=== PATIENT | female | born 1965 | race Caucasian/White ===

== ENCOUNTER → 2016-08-23 | Outpatient (REF) | payer OTHER ==
[~2016-08-23] MED LIST: ALER25CA PO; ASPI81TA85 PO; FERR325T3 PO; HYDR12.55 PO; IBUP600T26 PO; LEVO100T5 PO; MEGE40TA PO; METF500T PO; OMEP40CA2 PO; PREZ1TAB PO; SUMA50TA2 PO; THERTAB56 PO; TRUVTAB3 PO; [UNRECOGNIZED DRUG - CODE] PO
[2016-08-23 13:02] LABS: ALBUMIN 3.7 GM/DL (3.2-5.2); ALBUMIN/GLOBULIN RATIO 1.12 (1.00-1.93); ALKALINE PHOSPHATASE 78 U/L (45-117); ALT/SGPT 24 U/L (12-78); ANION GAP 11 MEQ/L (8-16); AST/SGOT 14 U/L (15-37); BILIRUBIN,TOTAL 0.3 MG/DL (0.2-1.0); BLOOD UREA NITROGEN 14 MG/DL (7-18); CALCIUM LEVEL 9.2 MG/DL (8.5-10.1); CARBON DIOXIDE LEVEL 27 MEQ/L (21-32); CHLORIDE LEVEL 102 MEQ/L (98-107); CHOLESTEROL LEVEL 154 MG/DL (<200); GLOMERULAR FILTRATION RATE > 60.0 (>51); GLUCOSE, FASTING 229 MG/DL (70-105); POTASSIUM SERUM 3.7 MEQ/L (3.5-5.1); SODIUM LEVEL 140 MEQ/L (136-145); TRIGLYCERIDES LEVEL 195 MG/DL (<150)
== END ==
LOC: M SFHCPLAZ 08:50
PROVIDERS: ATTEND Internal Medicine Infectious Disease
DX: B20 Human immunodeficiency virus [HIV] disease (principal); E11.39 Type 2 diabetes mellitus with other diabetic ophthalmic complication; E03.9 Hypothyroidism, unspecified

== ENCOUNTER → 2016-10-25 | Outpatient (REF) | payer OTHER ==
[~2016-10-25] MED LIST changes: -MEGE40TA PO; +MEGE40TA18 PO
== END ==
LOC: M SFHCPLAZ 13:13
PROVIDERS: ATTEND Internal Medicine Infectious Disease
DX: J40 Bronchitis, not specified as acute or chronic (principal)

== ENCOUNTER → 2017-03-14 | Outpatient (REF) | payer OTHER ==
[~2017-03-14] MED LIST changes: +IBUP-1022 PO; -IBUP600T26 PO; -METF500T PO; +METF500T13 PO; +TRUVTAB PO; -TRUVTAB3 PO; +[UNRECOGNIZED DRUG - CODE] PO; -[UNRECOGNIZED DRUG - CODE] PO
[2017-03-14 19:13] LABS: ALBUMIN 3.2 GM/DL (3.2-5.2); ALBUMIN/GLOBULIN RATIO 0.82 (1.00-1.93); BILIRUBIN,TOTAL 0.2 MG/DL (0.2-1.0); CALCIUM LEVEL 9.3 MG/DL (8.5-10.1); CREATININE FOR GFR 1.06 MG/DL (0.55-1.02); FREE T4 1.23 NG/DL (0.76-1.46); GLOMERULAR FILTRATION RATE 57.7 (>51); PERCENT SATURATION 14.4 % (13.2-45.0); POTASSIUM SERUM 4.1 MEQ/L (3.5-5.1); TOTAL PROTEIN 7.1 GM/DL (6.4-8.2)
[2017-03-20 00:06] LABS: Eosinophils 1 % (Not Estab.); HGB 12.6 g/dL (11.1-15.9); Monocytes 6 % (Not Estab.); Neutrophils 58 % (Not Estab.); WBC 9.1 x10E3/uL (3.4-10.8)
== END ==
LOC: M SFHCPLAZ 14:20
PROVIDERS: ATTEND Internal Medicine Infectious Disease
DX: B20 Human immunodeficiency virus [HIV] disease (principal); E03.9 Hypothyroidism, unspecified; E11.39 Type 2 diabetes mellitus with other diabetic ophthalmic complication; D50.8 Other iron deficiency anemias

== ENCOUNTER → 2017-07-02 | Outpatient (REF) | payer OTHER ==
[2017-07-02 16:25] LABS: ESTIMATED AVERAGE GLUCOSE 275 MG/DL (60-110); HEMOGLOBIN A1c 11.2 %
[2017-07-02 16:42] LABS: ANION GAP 9 MEQ/L (8-16); BLOOD UREA NITROGEN 14 MG/DL (7-18); CALCIUM LEVEL 9.2 MG/DL (8.5-10.1); CARBON DIOXIDE LEVEL 30 MEQ/L (21-32); CHLORIDE LEVEL 99 MEQ/L (98-107); CREATININE FOR GFR 1.12 MG/DL (0.55-1.30); FREE T4 1.02 NG/DL (0.76-1.46); GLOMERULAR FILTRATION RATE 54.2 (>51); GLUCOSE, FASTING 272 MG/DL (70-100); POTASSIUM SERUM 3.6 MEQ/L (3.5-5.1); SODIUM LEVEL 138 MEQ/L (136-145)
[2017-07-03 11:05] LABS: HEPATITIS B SURFACE ANTIBODY NEGATIVE (POSITIVE)
[2017-07-03 11:11] LABS: HEPATITIS B SURFACE ANTIGEN NEGATIVE (NEGATIVE)
[2017-07-04 08:06] LABS: HEPATITIS A IgG TOTAL Positive (Negative)
== END ==
LOC: M LABDRAW1 13:56
DX: E03.9 Hypothyroidism, unspecified (principal); E11.39 Type 2 diabetes mellitus with other diabetic ophthalmic complication

== ENCOUNTER → 2017-09-17 | Outpatient (REF) | payer OTHER ==
[2017-09-17 12:28] LABS: ALBUMIN 3.5 GM/DL (3.2-5.2); ALKALINE PHOSPHATASE 62 U/L (45-117); ALT/SGPT 24 U/L (12-78); AST/SGOT 13 U/L (7-37); BILIRUBIN,TOTAL 0.2 MG/DL (0.2-1.0); BLOOD UREA NITROGEN 13 MG/DL (7-18); CARBON DIOXIDE LEVEL 26 MEQ/L (21-32); CHLORIDE LEVEL 105 MEQ/L (98-107); GLUCOSE, FASTING 298 MG/DL (70-100); HDL CHOLESTEROL 34 MG/DL (>40); POTASSIUM SERUM 3.6 MEQ/L (3.5-5.1); TRIGLYCERIDES LEVEL 232 MG/DL (<150)
[2017-09-17 12:55] LABS: APPEARANCE, URINE CLEAR (CLEAR); BACTERIA, URINE AUTO NEGATIVE (NEGATIVE); BILIRUBIN, URINE AUTO NEGATIVE (NEGATIVE); BLOOD, URINE BLOOD NEGATIVE (NEGATIVE); COLOR, URINE YELLOW (YELLOW); GLUCOSE, URINE (UA) AUTO 3+ mg/dL (NEGATIVE); KETONE, URINE AUTO NEGATIVE (NEGATIVE); LEUKOCYTE ESTERASE, URINE AUTO NEGATIVE (NEGATIVE); NITRITE, URINE AUTO NEGATIVE (NEGATIVE); PROTEIN, URINE AUTO NEGATIVE (NEGATIVE); RBC, URINE AUTO 1 /HPF (0-3); SPECIFIC GRAVITY URINE AUTO 1.023 (1.002-1.035); SQUAMOUS EPITHELIAL CELL UR AU 1 /HPF (0-6); UROBILINOGEN, URINE AUTO 0.2 mg/dL (0.0-2.0); WBC, URINE AUTO 0 /HPF (0-3)
[2017-09-17 13:15] LABS: CREATININE, URINE 84.8 MG/DL; MALB URINE SIEMENS 49.1 MG/L; MAU/CREAT RATIO 57.9 MCG/MG (0.0-30.0)
[2017-09-17 13:17] LABS: CALCIUM LEVEL 9.5 MG/DL (8.5-10.1); ESTIMATED AVERAGE GLUCOSE 229 MG/DL (60-110); HEMOGLOBIN A1c 9.6 %
[2017-09-17 14:02] LABS: ANION GAP 10 MEQ/L (8-16); CHOLESTEROL LEVEL 172 MG/DL (<200); CHOLESTEROL RISK RATIO 5.058 (<5); LDL CHOLESTEROL 91.6 MG/DL (<100); NON-HDL-C 138 MG/DL; SODIUM LEVEL 141 MEQ/L (136-145)
[2017-09-20 00:06] LABS: % CD8 Pos Lymph 46.6 % (12.0-35.5); %CD4 Pos Lymphs 36.3 % (30.8-58.5); ABS Basophils 0.1 x10E3/uL (0.0-0.2); ABS Eosinophils 0.2 x10E3/uL (0.0-0.4); ABS Lymphs 3.3 x10E3/uL (0.7-3.1); ABS Monocytes 0.5 x10E3/uL (0.1-0.9); ABS Neutophils 7.5 x10E3/uL (1.4-7.0); Abs CD4 Helper 1198 /uL (359-1519); Abs CD8 Suppres 1538 /uL (109-897); CD4/CD8 Ratio 0.78 (0.92-3.72); Eosinophils 2 % (Not Estab.); HCT 37.5 % (34.0-46.6); HGB 12.4 g/dL (11.1-15.9); HIV-1 RNA PCR QUANT 2 LC550285 40 copies/mL (.); HIV-1 RNA PCR QUANT 3 LC550285 1.602 (.); Immature Grans 0 % (Not Estab.); Lymphocytes 29 % (Not Estab.); MCH 30.1 pg (26.6-33.0); MCHC 33.1 g/dL (31.5-35.7); MCV 91 fL (79-97); Monocytes 5 % (Not Estab.); Neutrophils 63 % (Not Estab.); Platelets 370 x10E3/uL (150-379); QUANTIFERON GOLD TB Negative (Negative); RBC 4.12 x10E6/uL (3.77-5.28); TB Test (QFT) Antigen 0.03 IU/mL (.); TB Test (QFT) Antigen Minus Ni 0.01 IU/mL (.); TB Test (QFT) Mitogen >10.00 IU/mL (.); TB Test (QFT) Nil 0.02 IU/mL (.); WBC 11.7 x10E3/uL (3.4-10.8)
== END ==
LOC: M SFHCPLAZ 08:35
DX: B20 Human immunodeficiency virus [HIV] disease (principal); E11.39 Type 2 diabetes mellitus with other diabetic ophthalmic complication; E03.9 Hypothyroidism, unspecified

== ENCOUNTER → 2017-12-27 | Outpatient (REF) | payer OTHER ==
[2017-12-27 12:46] LABS: ALBUMIN 3.7 GM/DL (3.2-5.2); ALBUMIN/GLOBULIN RATIO 1.03 (1.00-1.93); ALKALINE PHOSPHATASE 64 U/L (45-117); ALT/SGPT 26 U/L (12-78); ANION GAP 10 MEQ/L (8-16); AST/SGOT 12 U/L (7-37); BILIRUBIN,TOTAL 0.4 MG/DL (0.2-1.0); BLOOD UREA NITROGEN 12 MG/DL (7-18); CALCIUM LEVEL 9.4 MG/DL (8.5-10.1); CARBON DIOXIDE LEVEL 28 MEQ/L (21-32); CHLORIDE LEVEL 105 MEQ/L (98-107); CHOLESTEROL LEVEL 166 MG/DL (<200); CHOLESTEROL RISK RATIO 4.611 (<5); CREATININE FOR GFR 1.04 MG/DL (0.55-1.30); FREE T4 1.12 NG/DL (0.76-1.46); GLOMERULAR FILTRATION RATE 58.8 (>51); GLUCOSE, FASTING 179 MG/DL (70-100); HDL CHOLESTEROL 36 MG/DL (>40); LDL CHOLESTEROL 83.8 MG/DL (<100); NON-HDL-C 130 MG/DL; POTASSIUM SERUM 3.8 MEQ/L (3.5-5.1); SODIUM LEVEL 143 MEQ/L (136-145); TOTAL PROTEIN 7.3 GM/DL (6.4-8.2); TRIGLYCERIDES LEVEL 231 MG/DL (<150)
[2017-12-27 13:17] LABS: ESTIMATED AVERAGE GLUCOSE 249 MG/DL (60-110); HEMOGLOBIN A1c 10.3 %
[2017-12-31 15:32] LABS: % CD8 Pos Lymph 43.6 % (12.0-35.5); %CD4 Pos Lymphs 34.3 % (30.8-58.5); ABS Eosinophils 0.2 x10E3/uL (0.0-0.4); ABS Lymphs 2.7 x10E3/uL (0.7-3.1); ABS Monocytes 0.8 x10E3/uL (0.1-0.9); ABS Neutophils 8.1 x10E3/uL (1.4-7.0); Abs CD4 Helper 926 /uL (359-1519); Abs CD8 Suppres 1177 /uL (109-897); CD4/CD8 Ratio 0.79 (0.92-3.72); Eosinophils 1 % (Not Estab.); HCT 37.3 % (34.0-46.6); HIV-1 RNA PCR QUANT 2 LC550285 <20 copies/mL (.); Immature Grans 0 % (Not Estab.); Lymphocytes 23 % (Not Estab.); MCH 28.2 pg (26.6-33.0); MCHC 32.2 g/dL (31.5-35.7); MCV 88 fL (79-97); Monocytes 7 % (Not Estab.); Neutrophils 69 % (Not Estab.); Platelets 437 x10E3/uL (150-379); RBC 4.25 x10E6/uL (3.77-5.28); RDW 15.7 % (12.3-15.4); WBC 11.8 x10E3/uL (3.4-10.8)
== END ==
LOC: M LABDRAW1 08:58
DX: B20 Human immunodeficiency virus [HIV] disease (principal); E03.9 Hypothyroidism, unspecified; E11.39 Type 2 diabetes mellitus with other diabetic ophthalmic complication

== ENCOUNTER → 2018-06-30 | Outpatient (REF) | payer OTHER ==
[2018-06-30 14:04] LABS: ALBUMIN 3.7 GM/DL (3.2-5.2); ALT/SGPT 30 U/L (12-78); BILIRUBIN,TOTAL 0.3 MG/DL (0.2-1.0); BLOOD UREA NITROGEN 11 MG/DL (7-18); CARBON DIOXIDE LEVEL 26 MEQ/L (21-32); CHLORIDE LEVEL 102 MEQ/L (98-107); CHOLESTEROL LEVEL 179 MG/DL (<200); CHOLESTEROL RISK RATIO 5.114 (<5); FREE T4 1.09 NG/DL (0.76-1.46); GLOMERULAR FILTRATION RATE > 60.0 (>51); GLUCOSE, FASTING 215 MG/DL (70-100); HDL CHOLESTEROL 35 MG/DL (>40); LDL CHOLESTEROL 88 MG/DL (<100); NON-HDL-C 144 MG/DL; POTASSIUM SERUM 3.6 MEQ/L (3.5-5.1); SODIUM LEVEL 139 MEQ/L (136-145); TOTAL PROTEIN 7.3 GM/DL (6.4-8.2); TRIGLYCERIDES LEVEL 280 MG/DL (<150)
[2018-06-30 14:18] LABS: HEMOGLOBIN A1c 10.8 %
[2018-07-02 00:11] LABS: % CD8 Pos Lymph 42.2 % (12.0-35.5); %CD4 Pos Lymphs 37.7 % (30.8-58.5); ABS Basophils 0.1 x10E3/uL (0.0-0.2); ABS Eosinophils 0.2 x10E3/uL (0.0-0.4); ABS Lymphs 3.4 x10E3/uL (0.7-3.1); ABS Monocytes 0.7 x10E3/uL (0.1-0.9); Abs CD4 Helper 1282 /uL (359-1519); Abs CD8 Suppres 1435 /uL (109-897); CD4/CD8 Ratio 0.89 (0.92-3.72); Eosinophils 1 % (Not Estab.); HCT 40.4 % (34.0-46.6); HGB 13.2 g/dL (11.1-15.9); Imm ABS Grans 0.1 x10E3/uL (0.0-0.1); Immature Grans 1 % (Not Estab.); Lymphocytes 28 % (Not Estab.); MCH 29.4 pg (26.6-33.0); MCHC 32.7 g/dL (31.5-35.7); MCV 90 fL (79-97); Monocytes 5 % (Not Estab.); Neutrophils 65 % (Not Estab.); Platelets 420 x10E3/uL (150-379); RBC 4.49 x10E6/uL (3.77-5.28); RDW 15.1 % (12.3-15.4); WBC 12.4 x10E3/uL (3.4-10.8)
[2018-07-03 00:09] LABS: HIV-1 RNA PCR QUANT 2 LC550285 <20 copies/mL (.)
== END ==
LOC: M SFHCPLAZ 10:50
PROVIDERS: ATTEND Internal Medicine Infectious Disease
DX: B20 Human immunodeficiency virus [HIV] disease (principal); E11.39 Type 2 diabetes mellitus with other diabetic ophthalmic complication; E03.9 Hypothyroidism, unspecified

== ENCOUNTER → 2018-10-02 | Outpatient (REF) | payer OTHER ==
[2018-10-02 14:05] LABS: ALBUMIN 3.4 GM/DL (3.2-5.2); BILIRUBIN,TOTAL 0.3 MG/DL (0.2-1.0); CALCIUM LEVEL 9.2 MG/DL (8.5-10.1); CHOLESTEROL RISK RATIO 6.6 (<5); CREATININE FOR GFR 1.11 MG/DL (0.55-1.30); FREE T4 1.21 NG/DL (0.76-1.46); GLOMERULAR FILTRATION RATE 54.3 (>51); POTASSIUM SERUM 3.4 MEQ/L (3.5-5.1); THYROID STIMULATING HORMONE 2.52 uIU/ML (0.358-3.740); TOTAL PROTEIN 7.2 GM/DL (6.4-8.2)
[2018-10-02 14:13] LABS: HEMOGLOBIN A1c 9.3 %
[2018-10-06 14:10] LABS: % CD8 Pos Lymph 44.4 % (12.0-35.5); %CD4 Pos Lymphs 36.8 % (30.8-58.5); ABS Eosinophils 0.2 x10E3/uL (0.0-0.4); ABS Lymphs 2.8 x10E3/uL (0.7-3.1); ABS Monocytes 0.5 x10E3/uL (0.1-0.9); ABS Neutophils 6.4 x10E3/uL (1.4-7.0); Abs CD4 Helper 1030 /uL (359-1519); Abs CD8 Suppres 1243 /uL (109-897); CD4/CD8 Ratio 0.83 (0.92-3.72); Eosinophils 2 % (Not Estab.); HCT 39.6 % (34.0-46.6); HGB 12.8 g/dL (11.1-15.9); HIV-1 RNA PCR QUANT 2 LC550285 <20 copies/mL (.); Immature Grans 0 % (Not Estab.); Lymphocytes 28 % (Not Estab.); MCH 29.2 pg (26.6-33.0); MCHC 32.3 g/dL (31.5-35.7); MCV 90 fL (79-97); Monocytes 5 % (Not Estab.); Neutrophils 65 % (Not Estab.); Platelets 419 x10E3/uL (150-379); RBC 4.38 x10E6/uL (3.77-5.28); WBC 9.9 x10E3/uL (3.4-10.8)
== END ==
LOC: M SFHCPLAZ 09:23
PROVIDERS: ATTEND Internal Medicine Infectious Disease
DX: B20 Human immunodeficiency virus [HIV] disease (principal); E11.39 Type 2 diabetes mellitus with other diabetic ophthalmic complication; C32.9 Malignant neoplasm of larynx, unspecified

== ENCOUNTER → 2018-10-10 | Outpatient (CLI) | payer OTHER ==
--- NOTE | 2018-10-10 11:37 | REPMRS ---
Patient History The patient states she had a clinical breast exam in 10/2018. Patient is postmenopausal, has history of endometrial cancer at age 49, had previous chest radiation therapy at age 43, has history of other cancer at age 43, and had previous chemotherapy at age 43. Family history of ovarian cancer at age 34 in sister, breast cancer at age 46 in sister. No Hormone Replacement Therapy 3D TOMOSYNTHESIS WAS PERFORMED. Digital Woman Screen Mammo: October 10, 2018 - Exam #: [id number] Bilateral CC and MLO view(s) were taken. Technologist: Eliana Gonzalez, Technologist Prior study comparison: October 09, 2017, digital woman screen mammo performed at [facility]. March 06, 2016, digital woman screen mammo performed at [facility]. FINDINGS: There are scattered fibroglandular densities. There has been no change in the appearance of the mammogram from the prior studies. There is a mild amount of residual fibroglandular tissue which is fairly symmetric. There is no interval development of dominant mass, architectural distortion, or clustered microcalcification suggestive of malignancy. Assessment: BI-RADS/ACR category 1 mammogram. Negative Mammogram. Recommendation Routine screening mammogram in 1 year (for women over age 40). This mammogram was interpreted with the aid of an FDA-approved computer-aided dectection system. Electronically Signed By: Nate Bojorquez MD 10/10/18 [id number]
--- NOTE | 2018-10-13 15:04 | DEXA ---
AP SPINE L1 - L4 1.156 -0.3 0.5 LT FEMUR TOTAL 0.940 -0.5 0.1 LT NECK 0.828 -1.5 -0.5 RT FEMUR TOTAL 0.989 -0.1 0.5 RT NECK 0.930 -0.8 0.2 TOTAL BODY TOTAL OTHER COMMENTS: Normal bone densitometry of the spine. Normal bone densitometry of the right hip. There is low bone density of the left hip. FOLLOW-UP: Recommendation for the next bone density exam: 2 years. MERRILL
== END ==
LOC: M WHC 09:39
PROVIDERS: ATTEND Internal Medicine Infectious Disease
DX: Z12.31 Encounter for screening mammogram for malignant neoplasm of breast (principal); Z78.0 Asymptomatic menopausal state; Z13.820 Encounter for screening for osteoporosis; Z85.42 Personal history of malignant neoplasm of other parts of uterus; Z92.21 Personal history of antineoplastic chemotherapy; Z80.3 Family history of malignant neoplasm of breast; Z80.0 Family history of malignant neoplasm of digestive organs

== ENCOUNTER → 2018-10-10 | Outpatient (REF) | payer OTHER | LOC: M SFHCWAGY 09:30 | PROVIDERS: ATTEND Nurse Practitioner Women's Health | DX: Z53.9 Procedure and treatment not carried out, unspecified reason (principal); Z12.4 Encounter for screening for malignant neoplasm of cervix; Z85.42 Personal history of malignant neoplasm of other parts of uterus ==

== ENCOUNTER → 2018-11-10 | Outpatient (REF) | payer OTHER | LOC: M LAB REF 11:35 | PROVIDERS: ATTEND Specialist | DX: D37.030 Neoplasm of uncertain behavior of the parotid salivary glands (principal) ==

== ENCOUNTER → 2018-11-19 | Outpatient (REF) | payer OTHER | LOC: M LAB REF 11-18 15:49 | PROVIDERS: ATTEND Specialist | DX: D37.030 Neoplasm of uncertain behavior of the parotid salivary glands (principal) ==

== ENCOUNTER → 2019-01-08 | Outpatient (REF) | payer OTHER ==
[~2019-01-08] MED LIST changes: +MEGE40TA PO
[2019-01-08 13:11] LABS: BASO # 0.1 10^3/uL (0.0-0.2); BASO % 0.9 % (0.0-1.0); EOS # 0.2 10^3/uL (0.0-0.50); EOS % 2.3 % (0.0-3.0); HEMATOCRIT 39.1 % (36.0-47.0); HEMOGLOBIN 12.5 g/dl (12.0-15.5); LYMPH % 30.1 % (24.0-44.0); MEAN CORPUSCULAR HEMOGLOBIN 29.3 pg (27.0-33.0); MEAN CORPUSCULAR VOLUME 91.8 fl (80.0-96.0); MONO # 0.7 10^3/uL (0.0-0.8); MONO % 6.8 % (0.0-5.0); NEUTROPHILS # 5.9 10^3/uL (1.8-7.7); NEUTROPHILS % 59.6 % (36.0-66.0); PLATELET COUNT, AUTOMATED 401 10^3/uL (150-450); RED BLOOD COUNT 4.26 10^6/uL (4.00-5.40); WHITE BLOOD COUNT 9.9 10^3/uL (4.0-10.0)
[2019-01-08 13:20] LABS: BLOOD UREA NITROGEN 13 MG/DL (7-18); CALCIUM LEVEL 9.5 MG/DL (8.5-10.1); CARBON DIOXIDE LEVEL 27 MEQ/L (21-32); CHLORIDE LEVEL 106 MEQ/L (98-107); CREATININE FOR GFR 0.96 MG/DL (0.55-1.30); GLOMERULAR FILTRATION RATE > 60.0 (>51); GLUCOSE, FASTING 216 MG/DL (70-100); POTASSIUM SERUM 3.7 MEQ/L (3.5-5.1); SODIUM LEVEL 141 MEQ/L (136-145)
== END ==
LOC: M LABDRAW1 09:16
PROVIDERS: ATTEND Internal Medicine Infectious Disease
DX: D11.0 Benign neoplasm of parotid gland (principal); E11.39 Type 2 diabetes mellitus with other diabetic ophthalmic complication

== ENCOUNTER 2019-02-05 09:29 | Day surgery (SDC) | payer OTHER ==
[~2019-02-05] VITALS: Ht 162.6 cm; Wt 119.7 kg
[~2019-02-05 09:29] MED LIST changes: +BLAC40CA PO; +CARV6.25 PO; +CROM5SOL OU; +FISH1000 PO; +HYDR-3716 PO; +KETO0.02 OU; +LEVO125T4 PO; +LOSA100T5 PO; +MELO15TA28 PO; +METF10004 PO; +STOO2CAP PO; +SYMT1TAB PO; +THERTAB18 PO; +TRES1INJ; +TRUL0.5I SC; +VENL75CA47 PO
[2019-02-05] MEDS ORDERED: ADVI100T PO (10:30)
[2019-02-05] MEDS ORDERED: CARVedilol 6.25 MG TAB As Ordered ONE (11:07)
[2019-02-05] MEDS ORDERED: LR 1,000 ML IV ONE (11:15)
[2019-02-05] MEDS ORDERED: CARVedilol 6.25 MG TAB PO ONE (11:15)
[2019-02-05] MEDS ORDERED: PROPOFOL 200 MG/20 ML VIAL As Ordered ONE (11:34)
[2019-02-05] MEDS ORDERED: ONDANSETRON 4MG/2ML VIAL (J2405) As Ordered ONE (11:34)
[2019-02-05] MEDS ORDERED: LIDOCAINE 2% INJ 100 MG/5 ML SDV (FOR ANES.) As Ordered ONE (11:34)
[2019-02-05] MEDS ORDERED: dexameTHASONE 4 MG/ML 1ML VIAL (J1100) As Ordered ONE (11:34)
[2019-02-05] MEDS ORDERED: ROCURONIUM BROMIDE 50 MG/5 ML VIAL As Ordered ONE (11:34)
[2019-02-05] MEDS ORDERED: MIDAZOLAM INJ 2 MG/2 ML VIAL (J2250) As Ordered ONE (12:38)
[2019-02-05] MEDS ORDERED: fentaNYL 250 MCG/5 ML INJECTION (J3010) As Ordered ONE (12:38)
[2019-02-05] MEDS ORDERED: BACITRACIN OINT 30GM As Ordered ONE (12:41)
[2019-02-05] MEDS ORDERED: LIDOCAINE W/EPINEPHRINE 1% 20ML VIAL As Ordered ONE (12:41)
[2019-02-05] MEDS ORDERED: ePHEDrine SULFATE 25 MG/5 ML(5MG/ML) SYRINGE As Ordered ONE (13:56)
[2019-02-05] MEDS ORDERED: PHENYLephrine HCL 500 MCG/5 ML (100MCG/ML) SYRINGE (J2370) As Ordered ONE (13:56)
[2019-02-05] MEDS ORDERED: ACETAMINOPHEN 1000MG 100ML IV BTL (OFIRMEV) (J0131 PER 10MG) As Ordered ONE (15:00)
[2019-02-05] MEDS ORDERED: oxyCODONE 5MG TAB PO PRN (15:45)
[2019-02-05] MEDS ORDERED: LR 1,000 ML IV SCH ×2 (15:45→16:46)
[2019-02-05] MEDS ORDERED: ONDANSETRON 4MG/2ML VIAL (J2405) IV PRN (15:45)
[2019-02-05] MEDS ORDERED: fentaNYL 100 MCG/2 ML INJECTION (J3010) IV PRN (15:45)
[2019-02-05] MEDS ORDERED: ACETAMINOPH W/CODEINE #3 TAB UD PO PRN (16:46)
--- NOTE | 2019-02-05 17:07 | RO ---
DATE OF PROCEDURE: 02/05/2019 PREPROCEDURE DIAGNOSIS: Right parotid mass. POSTPROCEDURE DIAGNOSIS: Right parotid mass. PROCEDURE: Right superficial parotidectomy. SURGEON: Иван Ley MD [employer]: Dr. Bunn and he helped cut, tie sutures, and assisted in part of the dissection, as well as holding retractors. ANESTHESIA: DESCRIPTION OF PROCEDURE: The nerve monitor was used during the procedure and the electrodes were hooked up prior to the procedure. The patient was prepped and draped in the usual manner. The skin incision was mapped out. I divided the skin and subcutaneous tissues and elevated the tissues off of the parotid gland. I dissected between the parotid and the canal wall and then went down inferiorly and dissected the tissues off of the sternocleidomastoid muscle. Then, I dissected medially. Vessels seen were cauterized with bipolar cautery. I identified the facial nerve on that right side and then followed it anteriorly. I followed the superior and inferior branches until beyond the tumor, and then resected the tumor with the normal parotid gland. The nerve stimulated, intact at the end of the procedure. Area was irrigated to make sure there was no bleeding. Then, I sutured the parotid back with a #4-0 Vicryl and then closed the wound with #4-0 Vicryl and #5-0 nylon. A 1/4-inch Nery drain was placed in the wound. The patient tolerated the procedure well. Less than 10 mL estimated blood loss. The patient was extubated and transferred to the recovery room in excellent condition.
[2019-02-05 17:50] VITALS: BP 134/72
== END 2019-02-05 18:00 | disposition home or self-care (01) ==
LOC: M SDC 09:29
PROVIDERS: ATTEND Otolaryngology
DX: C07 Malignant neoplasm of parotid gland (principal); I10 Essential (primary) hypertension; E11.9 Type 2 diabetes mellitus without complications; B20 Human immunodeficiency virus [HIV] disease; E03.9 Hypothyroidism, unspecified; D64.9 Anemia, unspecified; K21.9 Gastro-esophageal reflux disease without esophagitis; Z88.0 Allergy status to penicillin; Z92.21 Personal history of antineoplastic chemotherapy; Z92.3 Personal history of irradiation; Z85.818 Personal history of malignant neoplasm of other sites of lip, oral cavity, and pharynx; Z79.84 Long term (current) use of oral hypoglycemic drugs; Z79.899 Other long term (current) drug therapy; Z79.82 Long term (current) use of aspirin
CPT/HCPCS: 42415; 88305; J0131; J1100; J2250; J2370; J2405; J3010

== ENCOUNTER 2019-02-06 09:24 | Emergency (ER) | payer OTHER ==
[~2019-02-06] VITALS: Ht 162.6 cm; Wt 121.3 kg
[~2019-02-06 09:24] MED LIST changes: +ADVI100T PO
[2019-02-06 09:26] VITALS: BP 126/92
== END 2019-02-06 10:37 | disposition home or self-care (01) ==
LOC: M ED 09:24
DX: Z48.01 Encounter for change or removal of surgical wound dressing (principal); Z98.890 Other specified postprocedural states; E11.319 Type 2 diabetes mellitus with unspecified diabetic retinopathy without macular edema; I10 Essential (primary) hypertension; E03.9 Hypothyroidism, unspecified; K59.00 Constipation, unspecified; B20 Human immunodeficiency virus [HIV] disease; Z88.0 Allergy status to penicillin; Z79.899 Other long term (current) drug therapy; Z79.4 Long term (current) use of insulin

== ENCOUNTER → 2019-03-18 | Outpatient (REF) | payer OTHER ==
[~2019-03-18] MED LIST changes: -OMEP40CA2 PO; +OMEP40CA97 PO
== END ==
LOC: M LAB REF 12:52
PROVIDERS: ATTEND Specialist
DX: D22.30 Melanocytic nevi of unspecified part of face (principal)

== ENCOUNTER → 2019-04-09 | Outpatient (CLI) | payer OTHER ==
--- NOTE | 2019-04-09 15:32 | RADONC ---
RADIATION ONCOLOGY NEW PATIENT CONSULTATION DATE: 04/09/2019 CHART NUMBER: [id number] DIAGNOSIS: Mucoepidermoid carcinoma, right parotid. Status post superficial parotidectomy with clear margins and no evidence of lymphovascular invasion and no evidence of perineural invasion. STAGE: T1, N0, M0, low grade. With clear margins and unifocal. ICD-10 CODE: C07. ECOG PERFORMANCE STATUS: 0 to 1. HISTORY OF PRESENT ILLNESS: The patient is a 53-year-old female who has multiple past issues as she has been treated for multiple cancers. 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 Her surgery was back in 2007 and she did well postoperatively. The tumor measured 2.0 x 1.5 cm and involved the left true and false vocal cord and multiple lymph nodes were noted with lymphovascular invasion. As stated she received chemotherapy and radiotherapy but eventually underwent salvage laryngectomy. In addition, the patient has a history of uterine cancer approximately 4-1/2 years ago and underwent radiotherapy. I do not have the formal records of her radiotherapy for her uterine cancer but she did bring her records for previous radiotherapy with regards to her laryngeal squamous cell carcinoma and she was treated for a total of 35 fractions to the larynx and lymphatic area with 6 MV photon beam and also received chemotherapy per Dr. Mazariegos for radiosensitization at the [facility] in [place]. As stated the patient eventually failed requiring laryngectomy and lymphadenectomy. She has previously stated did undergo radiotherapy for her uterine cancer following her hysterectomy and oophorectomy although we do not have details of her radiotherapy available to us at this time. She noted approximately 8-1/2 weeks ago a " lump" in her right parotid area which was imaged and consistent with a questionable adenoma. She underwent a superficial parotidectomy on 02/05/[address] Иван Ley and Dr. Bunn. The surgery was well tolerated, however the pathology did reveal a mucoepidermoid carcinoma of low grade. It was located in the right parotid unifocal and measured 1.3 cm. It was well differentiated and had no adverse histopathologic findings such as involved margins, lymphovascular invasion or perineural invasion, therefore it was quite localized and appeared to be fairly low grade. She was staged with regards to her parotid tumor a T1,N0, M0, grade 1. 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 Because the margins are clear yet close with regards to her mucoepidermoid tumor she has been referred for evaluation of radiotherapy to determine whether or not additional radiotherapy at this time to this area might be of benefit to her. PAST MEDICAL HEALTH: As stated the patient has been HIV positive and has apparently full blown AIDS for many years and has been under the care of her physicians who have been treating her medically and apparently successfully. She also has a history of uterine cancer status post hysterectomy and bilateral oophorectomy (according to the patient) for which she was treated with post operative radiation, and a remote history (2007) of laryngeal cancer status post chemo radiation and subsequent salvage surgery with a total laryngectomy and lymphadenectomy. ALLERGIES: AUGMENTIN. FAMILY HISTORY OF CANCER: Her mother has had a history of skin cancer. Both grandfathers had had cancer of unknown sites. She has two sisters apparently who have had breast cancer and and one sister who is alive having had "bone cancer". SOCIAL HISTORY: She is on disability. MARITAL HISTORY: Her is from AIDS. SMOKING HISTORY: She has a long history of smoking prior to her laryngeal cancer, however she is currently not smoking and does not drink. CURRENT MEDICATIONS: - diphenhydramine hydrochloride 25 mg by mouth as needed - losartan daily - Truvada 200-300 mg - omeprazole 40 mg daily - aspirin low-dose 81 mg by mouth daily - saqentey 150 mg by mouth twice a day - Thera by mouth daily - levothyroxine 100 micrograms by mouth daily - metformin 500 by mouth twice a day - ibuprofen 600 mg by mouth daily - sumatriptan 50 mg by mouth as needed - hydrochlorothiazide 12.5 mg daily - Megestrol Acetate 40 mg two by mouth twice a day - ferrous sulfate 325 mg by mouth daily - Trustbix 800 150 mg by mouth daily - Trulicity subcutaneous daily. REVIEW OF SYSTEMS: Patient denies any significant coughing, dyspnea, hemoptysis hiccups or pleural chest pain. She also denies wheezing. Psychiatric: She has had some issues with depression but denies delusions, hallucinations, significant mood swings. Neurologic: She denies any disorientation, dizziness, problems with gait, headaches, insomnia, memory loss, neuropathy, paralysis, seizure activity, sensory disorders or stroke. Integumentary: She denies alopecia, blisters, burning, dry skin, facial burning, fingernail or toenail issues, photosensitivity, pruritus, rashes or urticaria. Hematologic/lymphatic: She has some minor easy bruising but denies lymphadenopathy at the current time. Genitourinary: Denies significant dysuria, frequency, genital masses, hematuria, incontinence, nocturia, renal stone disease, sexual dysfunction, urgency, changes in urine color or vaginal discharge. Gastrointestinal: Denies significant changes in bowel habits, constipation, diarrhea, heartburn, dyspepsia, hematemesis, hematochezia, hemorrhoids, melanin, nausea, pain, early satiety or vomiting. HEENT: Denies ear pain, epistaxis, the patient has had a total laryngectomy and she occasionally has some esophagitis. Denies hearing issues. She has some mouth dryness. Denies oral bleeding. Denies otitis. Denies sinusitis. Occasionally she will cough a minimal amount of sputum without hemoptysis. Denies significant stomatitis but has dryness, alteration of taste and minimal tinnitus. Constitutional: She has a fairly good appetite and denies fatigue. Occasionally she will have a fever. Denies significant lethargy or malaise. Denies night sweats, rigors, chills or weight change. Cardiovascular: Denies arhythmia, chest pain, dyspnea, edema, orthopnea or palpitations. Allergic: Denies allergic reactions or other allergic problems. Vitals: Height 64 inches, weight 259, temperature 97.1, pulse 90, respirations 20, diastolic 84, systolic 139, O2 saturation 96% on room air. HEENT: The patient has swelling around her tracheostomy stomal area especially in the lower part of the submandibular area but the actual tracheostomy site appears to be functioning well without recurrent masses or infection. She has an incision in the right periparotid area which is well-healed and no masses are palpable. Her oral cavity appears dry with hyper erythematous mucous membranes but no distinct lesions. Lymphatics: No palpable peripheral lymphadenopathy is appreciated. Heart: Regular without murmurs. Abdomen: Without evidence of hepatomegaly, masses, deep abdominal tenderness. Extremities: Without cyanosis, significant clubbing or edema. Neurologic: Examination nonfocal. IMPRESSION: Right parotid mucoepidermoid carcinoma status post superficial parotidectomy with clear margins although the margins were somewhat close. She has a remote history of a fairly advanced laryngeal cancer as well as a remote gynecologic/uterine cancer status post resection and postoperative radiotherapy. PLAN OF RADIOTHERAPY: She comes to us today for evaluation of additional radiotherapy to the periparotid area for local control or to mainly prevent a local regional recurrence of her mucoepidermoid carcinoma. The NCCN guidelines would suggest that a patient with a parotid tumor which is low grade and does not have any evidence of perineural or lymphangitic spread of tumor, that no further therapy is warranted, assuming that she has none of the aforementioned unfavorable histo pathologic features. Even though the margins were somewhat close they were clear. In addition in her situation the fact that she has received previous radiotherapy in the general area would present problems. the matching of previous radiotherapy treatments given 10 years ago for her head and neck/pharyngeal cancer would be difficult. I would suggest that since there is no definite indication for radiotherapy that radiotherapy in this case is not warranted. In addition, the patient has had radiotherapy with her advanced head and neck cancer approximately 10 years ago as well as more recently with regards to her uterine cancer and she does not wish to undergo radiotherapy again. She has stated that she has significant reservations as to whether or not she would even consider radiotherapy if it were recommended. In summary there is no strong indication for postoperative radiotherapy in a mucoepidermoid tumor which has been completely excise with clear margins and is of low grade with no lymphangitic involvement and no evidence of perineural or angiolymphatic involvement. Close observation is however indicated and recommended. We will not be recommending radiotherapy for her but would recommend that she continued to be carefully watched for any potential local regional recurrence. Thank you for referring this very karen lady and allowing us the opportunity of participation in her overall management. MERRILL
== END ==
LOC: M ONCR 09:12
PROVIDERS: ATTEND Radiology Radiation Oncology
DX: C07 Malignant neoplasm of parotid gland (principal)

== ENCOUNTER → 2019-04-14 | Outpatient (REF) | payer OTHER ==
[2019-04-14 12:25] LABS: ALBUMIN 3.5 GM/DL (3.2-5.2); ALT/SGPT 22 U/L (12-78); BILIRUBIN,TOTAL 0.3 MG/DL (0.2-1.0); BLOOD UREA NITROGEN 9 MG/DL (7-18); CALCIUM LEVEL 9.6 MG/DL (8.5-10.1); CARBON DIOXIDE LEVEL 30 MEQ/L (21-32); CHLORIDE LEVEL 103 MEQ/L (98-107); CHOLESTEROL LEVEL 177 MG/DL (<200); CHOLESTEROL RISK RATIO 4.022 (<5); CREATININE FOR GFR 0.87 MG/DL (0.55-1.30); GLOMERULAR FILTRATION RATE > 60.0 (>51); GLUCOSE, FASTING 108 MG/DL (70-100); HDL CHOLESTEROL 44 MG/DL (>40); LDL CHOLESTEROL 89 MG/DL (<100); NON-HDL-C 133 MG/DL; POTASSIUM SERUM 3.8 MEQ/L (3.5-5.1); SODIUM LEVEL 141 MEQ/L (136-145); TOTAL PROTEIN 6.8 GM/DL (6.4-8.2); TRIGLYCERIDES LEVEL 218 MG/DL (<150)
[2019-04-17 00:06] LABS: % CD8 Pos Lymph 41.9 % (12.0-35.5); %CD4 Pos Lymphs 38.5 % (30.8-58.5); ABS Basophils 0.1 x10E3/uL (0.0-0.2); ABS Eosinophils 0.2 x10E3/uL (0.0-0.4); ABS Lymphs 2.9 x10E3/uL (0.7-3.1); ABS Monocytes 0.6 x10E3/uL (0.1-0.9); ABS Neutophils 6.9 x10E3/uL (1.4-7.0); Abs CD4 Helper 1117 /uL (359-1519); Abs CD8 Suppres 1215 /uL (109-897); CD4/CD8 Ratio 0.92 (0.92-3.72); Eosinophils 2 % (Not Estab.); HCT 39.4 % (34.0-46.6); HIV-1 RNA PCR QUANT 2 LC550285 <20 copies/mL (.); Immature Grans 0 % (Not Estab.); Lymphocytes 27 % (Not Estab.); MCH 29.3 pg (26.6-33.0); MCV 89 fL (79-97); Monocytes 6 % (Not Estab.); Neutrophils 64 % (Not Estab.); Platelets 456 x10E3/uL (150-450); RBC 4.44 x10E6/uL (3.77-5.28); RDW 14.8 % (12.3-15.4); WBC 10.7 x10E3/uL (3.4-10.8)
== END ==
LOC: M SFHCPLAZ 09:19
PROVIDERS: ATTEND Internal Medicine Infectious Disease
DX: B20 Human immunodeficiency virus [HIV] disease (principal)

== ENCOUNTER → 2019-08-17 | Outpatient (REF) | payer OTHER ==
[2019-08-17 11:55] LABS: ALBUMIN 3.6 GM/DL (3.2-5.2); ALT/SGPT 32 U/L (12-78); BILIRUBIN,TOTAL 0.3 MG/DL (0.2-1.0); BLOOD UREA NITROGEN 9 MG/DL (7-18); CALCIUM LEVEL 9.7 MG/DL (8.5-10.1); CARBON DIOXIDE LEVEL 30 MEQ/L (21-32); CHLORIDE LEVEL 101 MEQ/L (98-107); CREATININE FOR GFR 0.88 MG/DL (0.55-1.30); GLOMERULAR FILTRATION RATE > 60.0 (>51); GLUCOSE, FASTING 117 MG/DL (70-100); POTASSIUM SERUM 3.9 MEQ/L (3.5-5.1); SODIUM LEVEL 139 MEQ/L (136-145); TOTAL PROTEIN 7.1 GM/DL (6.4-8.2)
[2019-08-17 12:14] LABS: HEMOGLOBIN A1c 7.2 %
[2019-08-20 00:10] LABS: % CD8 Pos Lymph 38.3 % (12.0-35.5); %CD4 Pos Lymphs 40.2 % (30.8-58.5); ABS Basophils 0.1 x10E3/uL (0.0-0.2); ABS Eosinophils 0.2 x10E3/uL (0.0-0.4); ABS Lymphs 3.1 x10E3/uL (0.7-3.1); ABS Monocytes 0.6 x10E3/uL (0.1-0.9); ABS Neutophils 7.2 x10E3/uL (1.4-7.0); Abs CD4 Helper 1246 /uL (359-1519); Abs CD8 Suppres 1187 /uL (109-897); CD4/CD8 Ratio 1.05 (0.92-3.72); Eosinophils 2 % (Not Estab.); HCT 40.8 % (34.0-46.6); HGB 13.2 g/dL (11.1-15.9); HIV-1 RNA PCR QUANT 2 LC550285 <20 copies/mL (.); Immature Grans 0 % (Not Estab.); Lymphocytes 28 % (Not Estab.); MCH 29.2 pg (26.6-33.0); MCHC 32.4 g/dL (31.5-35.7); MCV 90 fL (79-97); Monocytes 6 % (Not Estab.); Neutrophils 63 % (Not Estab.); Platelets 442 x10E3/uL (150-450); RBC 4.52 x10E6/uL (3.77-5.28); RDW 15.2 % (11.7-15.4); WBC 11.2 x10E3/uL (3.4-10.8)
== END ==
LOC: M SFHCPLAZ 08:55
PROVIDERS: ATTEND Internal Medicine Infectious Disease
DX: B20 Human immunodeficiency virus [HIV] disease (principal); E03.9 Hypothyroidism, unspecified; E11.39 Type 2 diabetes mellitus with other diabetic ophthalmic complication

== ENCOUNTER → 2020-05-10 | Outpatient (REF) | payer OTHER ==
[~2020-05-10] MED LIST changes: -ASPI81TA85 PO; +ASPI81TA86 PO; -THERTAB18 PO; +THERTAB19 PO
[2020-05-10 16:11] LABS: ALBUMIN 3.6 GM/DL (3.2-5.2); ALT/SGPT 33 U/L (12-78); BILIRUBIN,TOTAL 0.2 MG/DL (0.2-1.0); BLOOD UREA NITROGEN 13 MG/DL (7-18); CALCIUM LEVEL 9.4 MG/DL (8.5-10.1); CARBON DIOXIDE LEVEL 32 MEQ/L (21-32); CHLORIDE LEVEL 104 MEQ/L (98-107); CREATININE FOR GFR 0.79 MG/DL (0.55-1.30); FREE T4 1.11 NG/DL (0.76-1.46); GLOMERULAR FILTRATION RATE > 60.0 (>51); GLUCOSE, FASTING 92 MG/DL (70-100); POTASSIUM SERUM 4.4 MEQ/L (3.5-5.1); SODIUM LEVEL 141 MEQ/L (136-145); TOTAL PROTEIN 6.6 GM/DL (6.4-8.2)
[2020-05-10 17:12] LABS: HEMOGLOBIN A1c 6.3 %
== END ==
LOC: M SFHCPLAZ 10:24
PROVIDERS: ATTEND Internal Medicine Infectious Disease
DX: B20 Human immunodeficiency virus [HIV] disease (principal); E11.39 Type 2 diabetes mellitus with other diabetic ophthalmic complication; E03.9 Hypothyroidism, unspecified

== ENCOUNTER → 2020-11-08 | Outpatient (REF) | payer OTHER ==
[~2020-11-08] MED LIST changes: +DOCU-160 PO; +EMTR1TAB16 PO; -STOO2CAP PO; -TRUVTAB PO
[2020-11-08 11:25] LABS: ALBUMIN 3.7 GM/DL (3.2-5.2); ALT/SGPT 33 U/L (12-78); BILIRUBIN,TOTAL 0.3 MG/DL (0.2-1.0); BLOOD UREA NITROGEN 10 MG/DL (7-18); CALCIUM LEVEL 9.3 MG/DL (8.5-10.1); CARBON DIOXIDE LEVEL 30 MEQ/L (21-32); CHLORIDE LEVEL 102 MEQ/L (98-107); CHOLESTEROL LEVEL 205 MG/DL (<200); CREATININE FOR GFR 0.76 MG/DL (0.55-1.30); GLOMERULAR FILTRATION RATE > 60.0 (>51); GLUCOSE, FASTING 104 MG/DL (70-100); HDL CHOLESTEROL 56 MG/DL (>40); LDL CHOLESTEROL 111 MG/DL (<100); NON-HDL-C 149 MG/DL; POTASSIUM SERUM 3.3 MEQ/L (3.5-5.1); SODIUM LEVEL 140 MEQ/L (136-145); TOTAL PROTEIN 6.9 GM/DL (6.4-8.2); TRIGLYCERIDES LEVEL 188 MG/DL (<150)
[2020-11-09 18:08] LABS: %CD4 Pos Lymphs 40.1 % (30.8-58.5); ABS Basophils 0.1 x10E3/uL (0.0-0.2); ABS Eosinophils 0.3 x10E3/uL (0.0-0.4); ABS Lymphs 2.8 x10E3/uL (0.7-3.1); ABS Monocytes 0.6 x10E3/uL (0.1-0.9); ABS Neutophils 5.1 x10E3/uL (1.4-7.0); Abs CD4 Helper 1123 /uL (359-1519); Abs CD8 Suppres 1176 /uL (109-897); CD4/CD8 Ratio 0.95 (0.92-3.72); Eosinophils 3 % (Not Estab.); HCT 36.7 % (34.0-46.6); HGB 12.4 g/dL (11.1-15.9); HIV-1 RNA PCR QUANT 2 LC550285 <20 copies/mL (.); Immature Grans 0 % (Not Estab.); Lymphocytes 31 % (Not Estab.); MCH 30.7 pg (26.6-33.0); MCHC 33.8 g/dL (31.5-35.7); MCV 91 fL (79-97); Monocytes 7 % (Not Estab.); Neutrophils 58 % (Not Estab.); Platelets 330 x10E3/uL (150-450); RBC 4.04 x10E6/uL (3.77-5.28); RDW 13.7 % (11.7-15.4); WBC 8.8 x10E3/uL (3.4-10.8)
== END ==
LOC: M SFHCPLAZ 09:19
PROVIDERS: ATTEND Internal Medicine Infectious Disease
DX: B20 Human immunodeficiency virus [HIV] disease (principal); E03.9 Hypothyroidism, unspecified; E11.39 Type 2 diabetes mellitus with other diabetic ophthalmic complication

== ENCOUNTER → 2020-12-14 | Outpatient (REF) | payer OTHER ==
[~2020-12-14] MED LIST changes: +OMEP40CA4 PO; -OMEP40CA97 PO
== END ==
LOC: M SFHCWAGY 13:19
PROVIDERS: ATTEND Nurse Practitioner Women's Health
DX: Z85.42 Personal history of malignant neoplasm of other parts of uterus (principal); Z12.72 Encounter for screening for malignant neoplasm of vagina

== ENCOUNTER → 2020-12-14 | Outpatient (CLI) | payer OTHER ==
--- NOTE | 2020-12-14 09:35 | REPMRS ---
Patient History The patient states she had a clinical breast exam in December 2020. Family history of ovarian cancer at age 34 in sister, breast cancer at age 46 in sister. No Hormone Replacement Therapy Patient states no breast complaints today. Patient has signed MRS History Sheet. Digital Woman Screen Mammo: December 14, 2020 - Exam #: [id number] Bilateral CC and MLO view(s) were taken. Technologist: Linda Dominguez, Technologist Prior study comparison: October 10, 2018, bilateral digital woman screen mammo performed at [facility]. October 09, 2017, digital woman screen mammo performed at [facility]. FINDINGS: There are scattered fibroglandular densities. Screening. Digital screening (2D) mammography was performed bilaterally in the CC and MLO projections. Additionally, breast tomosynthesis (3D mammography) was performed bilaterally in the CC and MLO projections. Todays exam was compared to the prior exam/exams. By history, the patient has no complaints of a palpable breast abnormality or other significant breast complaints. The breasts are unchanged in size and shape. There are no bonita-soft tissue densities or spiculated masses. There is no internal architectural distortion.Once again, stable benign appearing calcifications are seen. There are no suspicious bonita-calcific clusters. Skin thickening or nipple retraction is not present. IMPRESSION: BI-RADS Category 2- Benign Findings. There is no evidence of malignant alteration of the breasts. Followup examination recommended in one year. The Volpara volumetric breast density category is B, there are scattered areas of fibroglandular densities. This mammogram was read with the assistance of [facility],an FDA approved computer aided detection system for mammography. The lifetime Tyrer-Cuzick score is 14.1 % Negative x-ray reports should not delay surgical consultation if a dominant or clinically suspicious mass is present. Not all breast cancers can be identified by mammography. Therefore, we recommend that you continue to perform regular breast self-examination and physical examination and then promptly contact your physician of any concerns or changes. Adenosis and dense breasts may obscure an underlying neoplasm. Assessment: BI-RADS/ACR category 2 mammogram. Benign Findings. Recommendation Routine screening mammogram of both breasts in 1 year. Electronically Signed By: Dk Ron DO 12/14/20 0934
== END ==
LOC: M WHC 08:17
PROVIDERS: ATTEND Nurse Practitioner Women's Health
DX: Z12.31 Encounter for screening mammogram for malignant neoplasm of breast (principal); Z80.3 Family history of malignant neoplasm of breast; Z80.41 Family history of malignant neoplasm of ovary

== ENCOUNTER → 2021-05-22 | Outpatient (REF) | payer OTHER ==
[2021-05-22 12:39] LABS: ALBUMIN 3.7 GM/DL (3.2-5.2); ALT/SGPT 31 U/L (12-78); BILIRUBIN,TOTAL 0.3 MG/DL (0.2-1.0); BLOOD UREA NITROGEN 12 MG/DL (7-18); CALCIUM LEVEL 9.8 MG/DL (8.5-10.1); CARBON DIOXIDE LEVEL 33 MEQ/L (21-32); CHLORIDE LEVEL 101 MEQ/L (98-107); CHOLESTEROL LEVEL 204 MG/DL (<200); CHOLESTEROL RISK RATIO 4.434 (<5); CREATININE FOR GFR 0.85 MG/DL (0.55-1.30); FREE T4 1.07 NG/DL (0.76-1.46); GLOMERULAR FILTRATION RATE > 60.0 (>51); GLUCOSE, FASTING 113 MG/DL (70-100); HDL CHOLESTEROL 46 MG/DL (>40); IRON (FE) 28 UG/DL (50-170); LDL CHOLESTEROL 119 MG/DL (<100); NON-HDL-C 158 MG/DL; POTASSIUM SERUM 4.1 MEQ/L (3.5-5.1); SODIUM LEVEL 140 MEQ/L (136-145); TOTAL PROTEIN 6.9 GM/DL (6.4-8.2); TRIGLYCERIDES LEVEL 194 MG/DL (<150)
[2021-05-24 05:11] LABS: %CD4 Pos Lymphs 42.8 % (30.8-58.5); ABS Basophils 0.1 x10E3/uL (0.0-0.2); ABS Eosinophils 0.2 x10E3/uL (0.0-0.4); ABS Lymphs 3.2 x10E3/uL (0.7-3.1); ABS Monocytes 0.6 x10E3/uL (0.1-0.9); ABS Neutophils 5.7 x10E3/uL (1.4-7.0); Abs CD4 Helper 1370 /uL (359-1519); Abs CD8 Suppres 1248 /uL (109-897); Eosinophils 2 % (Not Estab.); HCT 40.2 % (34.0-46.6); HGB 13.5 g/dL (11.1-15.9); HIV-1 RNA PCR QUANT 2 LC550285 <20 copies/mL (.); Immature Grans 0 % (Not Estab.); Lymphocytes 33 % (Not Estab.); MCH 30.6 pg (26.6-33.0); MCHC 33.6 g/dL (31.5-35.7); MCV 91 fL (79-97); Monocytes 6 % (Not Estab.); Neutrophils 58 % (Not Estab.); Platelets 382 x10E3/uL (150-450); RBC 4.41 x10E6/uL (3.77-5.28); RDW 13.3 % (11.7-15.4); WBC 9.8 x10E3/uL (3.4-10.8)
== END ==
LOC: M SFHCCLAY 09:14
PROVIDERS: ATTEND Nurse Practitioner Family
DX: B20 Human immunodeficiency virus [HIV] disease (principal); E03.9 Hypothyroidism, unspecified; E11.39 Type 2 diabetes mellitus with other diabetic ophthalmic complication; D50.8 Other iron deficiency anemias

== ENCOUNTER → 2021-11-28 | Outpatient (REF) | payer OTHER ==
[2021-11-28 11:43] LABS: BASO # 0.1 10^3/uL (0.0-0.2); BASO % 0.5 % (0.0-1.0); EOS # 0.2 10^3/uL (0.0-0.5); EOS % 1.5 % (0.0-3.0); HEMATOCRIT 40.2 % (36.0-47.0); LYMPH # 3.3 10^3/uL (1.5-5.0); LYMPH % 29.7 % (24.0-44.0); MEAN CORPUSCULAR HGB CONC 32.3 g/dl (32.0-36.5); MEAN CORPUSCULAR VOLUME 95.9 fl (80.0-96.0); MONO # 0.8 10^3/uL (0.0-0.8); MONO % 6.8 % (2.0-8.0); NEUTROPHILS # 6.9 10^3/uL (1.5-8.5); NEUTROPHILS % 61.2 % (36.0-66.0); PLATELET COUNT, AUTOMATED 330 10^3/uL (150-450); RED BLOOD COUNT 4.19 10^6/uL (4.00-5.40); WHITE BLOOD COUNT 11.2 10^3/uL (4.0-10.0)
[2021-11-28 12:20] LABS: ALBUMIN 3.4 GM/DL (3.2-5.2); ALT/SGPT 26 U/L (12-78); BILIRUBIN,TOTAL 0.3 MG/DL (0.2-1.0); BLOOD UREA NITROGEN 10 MG/DL (7-18); CALCIUM LEVEL 9.5 MG/DL (8.5-10.1); CARBON DIOXIDE LEVEL 30 MEQ/L (21-32); CHLORIDE LEVEL 104 MEQ/L (98-107); CHOLESTEROL LEVEL 140 MG/DL (<200); CREATININE FOR GFR 0.87 MG/DL (0.55-1.30); FREE T4 1.05 NG/DL (0.76-1.46); GLOMERULAR FILTRATION RATE > 60.0 (>51); GLUCOSE, FASTING 128 MG/DL (70-100); HDL CHOLESTEROL 50 MG/DL (>40); LDL CHOLESTEROL 50 MG/DL (<100); NON-HDL-C 90 MG/DL; POTASSIUM SERUM 3.9 MEQ/L (3.5-5.1); SODIUM LEVEL 142 MEQ/L (136-145); TOTAL PROTEIN 6.8 GM/DL (6.4-8.2); TRIGLYCERIDES LEVEL 202 MG/DL (<150)
[2021-11-28 12:47] LABS: HEMOGLOBIN A1c 6.6 %
[2021-11-30 04:07] LABS: % CD8 Pos Lymph 37.1 % (12.0-35.5); ABS Basophils 0.1 x10E3/uL (0.0-0.2); ABS Eosinophils 0.2 x10E3/uL (0.0-0.4); ABS Lymphs 3.5 x10E3/uL (0.7-3.1); ABS Monocytes 0.8 x10E3/uL (0.1-0.9); Abs CD4 Helper 1540 /uL (359-1519); Abs CD8 Suppres 1299 /uL (109-897); CD4/CD8 Ratio 1.19 (0.92-3.72); Eosinophils 2 % (Not Estab.); HCT 39.9 % (34.0-46.6); HGB 13.2 g/dL (11.1-15.9); HIV-1 RNA PCR QUANT 2 LC550285 <20 copies/mL (.); Immature Grans 0 % (Not Estab.); Lymphocytes 30 % (Not Estab.); MCH 30.1 pg (26.6-33.0); MCHC 33.1 g/dL (31.5-35.7); MCV 91 fL (79-97); Monocytes 7 % (Not Estab.); Neutrophils 60 % (Not Estab.); Platelets 352 x10E3/uL (150-450); RBC 4.38 x10E6/uL (3.77-5.28); RDW 13.4 % (11.7-15.4); WBC 11.6 x10E3/uL (3.4-10.8)
== END ==
LOC: M SFHCCLAY 07:31
PROVIDERS: ATTEND Nurse Practitioner Family
DX: B20 Human immunodeficiency virus [HIV] disease (principal); E03.9 Hypothyroidism, unspecified; E11.39 Type 2 diabetes mellitus with other diabetic ophthalmic complication; D50.8 Other iron deficiency anemias; I10 Essential (primary) hypertension

== ENCOUNTER → 2021-12-27 | Outpatient (REF) | payer OTHER ==
[~2021-12-27] MED LIST changes: -MEGE40TA PO; +MEGE40TA3 PO
== END ==
LOC: M SFHCDERM 10:04
PROVIDERS: ATTEND Physician Assistant
DX: D22.39 Melanocytic nevi of other parts of face (principal)

== ENCOUNTER → 2022-06-05 | Outpatient (REF) | payer OTHER ==
[2022-06-05 12:07] LABS: HEMOGLOBIN A1c 6.5 % (4.0-6.0)
[2022-06-05 12:15] LABS: THYROID STIMULATING HORMONE 5.714 uIU/ML (0.55-4.78)
[2022-06-05 12:16] LABS: ALBUMIN 3.6 G/DL (3.2-5.2); ALKALINE PHOSPHATASE 79 U/L (46-116); ALT/SGPT 30 U/L (7.0-40); AST/SGOT 25 U/L (<34); BILIRUBIN,TOTAL 0.3 MG/DL (0.3-1.2); BLOOD UREA NITROGEN 9 MG/DL (9-23); CALCIUM LEVEL 9.8 MG/DL (8.5-10.1); CARBON DIOXIDE LEVEL 28 MMOL/L (20-31); CHLORIDE LEVEL 101 MMOL/L (98-107); CHOLESTEROL LEVEL 141 MG/DL (<200); CHOLESTEROL RISK RATIO 2.78 (<5); CREATININE FOR GFR 0.81 MG/DL (0.55-1.30); GLOMERULAR FILTRATION RATE > 60.0 (>51); GLUCOSE, FASTING 110 MG/DL (60-100); HDL CHOLESTEROL 50.6 MG/DL (>40); LDL CHOLESTEROL 48.8 MG/DL (<100); NON-HDL-C 90 MG/DL; POTASSIUM SERUM 4.9 MMOL/L (3.5-5.1); SODIUM LEVEL 142 MMOL/L (136-145); TRIGLYCERIDES LEVEL 208 MG/DL (<150)
== END ==
LOC: M LABDRAWC 11:21
PROVIDERS: ATTEND Internal Medicine Infectious Disease
DX: B20 Human immunodeficiency virus [HIV] disease (principal); E11.39 Type 2 diabetes mellitus with other diabetic ophthalmic complication; E03.9 Hypothyroidism, unspecified

== ENCOUNTER → 2022-10-24 | Outpatient (REF) | payer OTHER ==
[~2022-10-24] MED LIST changes: +CROM4SOL4 OU; -CROM5SOL OU; -KETO0.02 OU; +KETO5DRO33 OU
== END ==
LOC: M SFHCWAGY 13:26
PROVIDERS: ATTEND Nurse Practitioner Family
DX: Z12.4 Encounter for screening for malignant neoplasm of cervix (principal); Z01.419 Encounter for gynecological examination (general) (routine) without abnormal findings; Z77.9 Other contact with and (suspected) exposures hazardous to health

== ENCOUNTER → 2022-10-24 | Outpatient (CLI) | payer OTHER | LOC: M WHC 08:35 | PROVIDERS: ATTEND Nurse Practitioner Family | DX: Z12.31 Encounter for screening mammogram for malignant neoplasm of breast (principal) ==

== ENCOUNTER → 2022-11-23 | Outpatient (REF) | payer OTHER ==
[2022-11-23 11:54] LABS: HEMOGLOBIN A1c 6.4 % (4.0-6.0)
[2022-11-23 12:13] LABS: ALBUMIN 3.5 G/DL (3.2-5.2); ALKALINE PHOSPHATASE 69 U/L (46-116); ALT/SGPT 20 U/L (7.0-40); AST/SGOT 17 U/L (<34); BILIRUBIN,TOTAL 0.3 MG/DL (0.3-1.2); BLOOD UREA NITROGEN 11 MG/DL (9-23); CALCIUM LEVEL 8.8 MG/DL (8.5-10.1); CARBON DIOXIDE LEVEL 32 MMOL/L (20-31); CHLORIDE LEVEL 101 MMOL/L (98-107); CHOLESTEROL LEVEL 128 MG/DL (<200); CHOLESTEROL RISK RATIO 3.02 (<5); CREATININE FOR GFR 0.85 MG/DL (0.55-1.30); GLOMERULAR FILTRATION RATE > 60.0 (>51); GLUCOSE, FASTING 104 MG/DL (60-100); HDL CHOLESTEROL 42.3 MG/DL (>40); LDL CHOLESTEROL 47.1 MG/DL (<100); NON-HDL-C 85.7 MG/DL; POTASSIUM SERUM 3.9 MMOL/L (3.5-5.1); SODIUM LEVEL 140 MMOL/L (136-145); TOTAL PROTEIN 6.4 G/DL (5.7-8.2); TRIGLYCERIDES LEVEL 193 MG/DL (<150)
[2022-11-23 12:14] LABS: THYROID STIMULATING HORMONE 3.024 uIU/ML (0.55-4.78)
== END ==
LOC: M LABDRAWC 10:47
PROVIDERS: ATTEND Internal Medicine Infectious Disease
DX: B20 Human immunodeficiency virus [HIV] disease (principal); E03.9 Hypothyroidism, unspecified; M17.10 Unilateral primary osteoarthritis, unspecified knee; E11.39 Type 2 diabetes mellitus with other diabetic ophthalmic complication; E55.9 Vitamin D deficiency, unspecified

== ENCOUNTER → 2023-06-25 | Outpatient (REF) | payer MEDICAID | LOC: M SFHCCLAY 10:30 | PROVIDERS: ATTEND Physician Assistant | DX: R30.0 Dysuria (principal) ==

== ENCOUNTER → 2023-09-03 | Outpatient (REF) | payer MEDICAID, OTHER ==
[2023-09-03 17:56] LABS: BASO # 0.1 10^3/uL (0.0-0.2); BASO % 0.7 % (0.0-1.0); EOS # 0.3 10^3/uL (0.0-0.5); EOS % 2.6 % (0.0-3.0); HEMATOCRIT 41.1 % (36.0-47.0); HEMOGLOBIN 13.6 g/dl (12.0-15.5); LYMPH # 3.7 10^3/uL (1.5-5.0); LYMPH % 34.6 % (24.0-44.0); MEAN CORPUSCULAR HEMOGLOBIN 31.9 pg (27.0-33.0); MEAN CORPUSCULAR HGB CONC 33.1 g/dl (32.0-36.5); MEAN CORPUSCULAR VOLUME 96.3 fl (80.0-96.0); MONO # 0.7 10^3/uL (0.0-0.8); MONO % 6.6 % (2.0-8.0); NEUTROPHILS # 5.9 10^3/uL (1.5-8.5); PLATELET COUNT, AUTOMATED 350 10^3/uL (150-450); RED BLOOD COUNT 4.27 10^6/uL (4.00-5.40); WHITE BLOOD COUNT 10.7 10^3/uL (4.0-10.0)
[2023-09-03 18:21] LABS: ALBUMIN 3.6 G/DL (3.2-5.2); ALKALINE PHOSPHATASE 82 U/L (46-116); ALT/SGPT 23 U/L (7.0-40); AST/SGOT 17 U/L (<34); BILIRUBIN,TOTAL 0.3 MG/DL (0.3-1.2); BLOOD UREA NITROGEN 9 MG/DL (9-23); CALCIUM LEVEL 9.6 MG/DL (8.3-10.6); CARBON DIOXIDE LEVEL 35 MMOL/L (20-31); CHLORIDE LEVEL 100 MMOL/L (98-107); CHOLESTEROL LEVEL 134 MG/DL (<200); CHOLESTEROL RISK RATIO 3.09 (<5); CREATININE FOR GFR 0.76 MG/DL (0.55-1.30); GLOMERULAR FILTRATION RATE > 60.0 (>45); GLUCOSE, FASTING 152 MG/DL (74-106); HDL CHOLESTEROL 43.3 MG/DL (>40); LDL CHOLESTEROL 48.5 MG/DL (<100); NON-HDL-C 90.7 MG/DL; POTASSIUM SERUM 4.1 MMOL/L (3.5-5.1); SODIUM LEVEL 141 MMOL/L (136-145); TOTAL PROTEIN 6.7 G/DL (5.7-8.2); TRIGLYCERIDES LEVEL 211 MG/DL (<150)
[2023-09-03 18:25] LABS: THYROID STIMULATING HORMONE 6.038 uIU/ML (0.55-4.78)
== END ==
LOC: M SFHCCLAY 13:32
PROVIDERS: ATTEND Nurse Practitioner Family
DX: I10 Essential (primary) hypertension (principal); E03.9 Hypothyroidism, unspecified; E11.39 Type 2 diabetes mellitus with other diabetic ophthalmic complication; D50.8 Other iron deficiency anemias; B20 Human immunodeficiency virus [HIV] disease

== ENCOUNTER → 2023-09-03 | Outpatient (CLI) | payer OTHER | LOC: M CLY 13:53 | PROVIDERS: ATTEND Nurse Practitioner Family | DX: R05.1 Acute cough (principal); R06.02 Shortness of breath ==

== ENCOUNTER → 2023-11-06 | Outpatient (CLI) | payer OTHER | LOC: M WHC 07:43 | PROVIDERS: ATTEND Nurse Practitioner Family | DX: Z12.31 Encounter for screening mammogram for malignant neoplasm of breast (principal) ==

== ENCOUNTER → 2023-11-06 | Outpatient (REF) | payer OTHER, MEDICAID ==
[2023-11-08 13:57] LABS: HPV APTIMA Not Detected (Not Detected)
== END ==
LOC: M SFHCWAGY 09:56
PROVIDERS: ATTEND Nurse Practitioner Family
DX: Z12.72 Encounter for screening for malignant neoplasm of vagina (principal)

== ENCOUNTER → 2024-05-25 | Outpatient (REF) | payer OTHER, MEDICAID ==
[2024-05-25 17:23] LABS: BASO # 0.1 10^3/uL (0.0-0.2); BASO % 0.7 % (0.0-1.0); EOS # 0.2 10^3/uL (0.0-0.5); EOS % 1.3 % (0.0-3.0); HEMATOCRIT 42.4 % (36.0-47.0); HEMOGLOBIN 14.2 g/dl (12.0-15.5); LYMPH # 3.5 10^3/uL (1.5-5.0); LYMPH % 31.7 % (24.0-44.0); MEAN CORPUSCULAR HEMOGLOBIN 32.2 pg (27.0-33.0); MEAN CORPUSCULAR HGB CONC 33.5 g/dl (32.0-36.5); MEAN CORPUSCULAR VOLUME 96.1 fl (80.0-96.0); MONO # 0.8 10^3/uL (0.0-0.8); NEUTROPHILS # 6.6 10^3/uL (1.5-8.5); NEUTROPHILS % 59.1 % (36.0-66.0); PLATELET COUNT, AUTOMATED 343 10^3/uL (150-450); RED BLOOD COUNT 4.41 10^6/uL (4.00-5.40); WHITE BLOOD COUNT 11.1 10^3/uL (4.0-10.0)
[2024-05-25 17:41] LABS: HEMOGLOBIN A1c 6.6 % (4.0-6.0)
[2024-05-25 17:59] LABS: CREATININE, URINE 109.2 MG/DL; MAU/CREAT RATIO 3.6 MCG/MG (0.0-30.0)
[2024-05-25 18:01] LABS: ALBUMIN 3.6 G/DL (3.2-5.2); ALKALINE PHOSPHATASE 73 U/L (35-104); ALT/SGPT 21 U/L (7.0-40); AST/SGOT 16 U/L (<34); BILIRUBIN,TOTAL 0.3 MG/DL (0.3-1.2); BLOOD UREA NITROGEN 16 MG/DL (9-23); CARBON DIOXIDE LEVEL 34 MMOL/L (20-31); CHLORIDE LEVEL 99 MMOL/L (98-107); CHOLESTEROL RISK RATIO 3.33 (<5); GLOMERULAR FILTRATION RATE > 60.0 (>45); GLUCOSE, FASTING 167 MG/DL (74-106); HDL CHOLESTEROL 43.8 MG/DL (>40); LDL CHOLESTEROL 59.6 MG/DL (<100); NON-HDL-C 102.2 MG/DL; POTASSIUM SERUM 3.4 MMOL/L (3.5-5.1); SODIUM LEVEL 141 MMOL/L (136-145)
[2024-05-25 18:03] LABS: FREE T4 1.06 NG/DL (0.89-1.76); THYROID STIMULATING HORMONE 7.577 uIU/ML (0.55-4.78)
[2024-05-25 18:04] LABS: TOTAL 25(OH) VITAMIN D 37.8 NG/ML (20.0-100.0)
[2024-05-27 14:07] LABS: % CD4+ LYMPHS 45.4 % (30.8-58.5); ABSOLUTE CD4 HELPER 1634 /uL (359-1519); BASOPHILS 1 % (Not Estab.); BASOPHILS ABSOLUTE 0.1 x10E3/uL (0.0-0.2); EOSINOPHILS 1 % (Not Estab.); EOSINOPHILS ABSOLUTE 0.2 x10E3/uL (0.0-0.4); HCT 43.9 % (34.0-46.6); HGB 14.2 g/dL (11.1-15.9); LYMPHOCYTES 31 % (Not Estab.); LYMPHOCYTES ABSOLUTE 3.6 x10E3/uL (0.7-3.1); MCHC 32.3 g/dL (31.5-35.7); MCV 99 fL (79-97); MONOCYTES 7 % (Not Estab.); MONOCYTES ABSOLUTE 0.7 x10E3/uL (0.1-0.9); NEUTROPHILS 60 % (Not Estab.); NEUTROPHILS ABSOLUTE 6.9 x10E3/uL (1.4-7.0); PLT 347 x10E3/uL (150-450); RBC 4.44 x10E6/uL (3.77-5.28); RDW 12.8 % (11.7-15.4); WBC 11.5 x10E3/uL (3.4-10.8)
[2024-05-28 11:53] LABS: HIV-1 RNA PCR QUANT 2 NOT DETECTED copies/mL (NOT DETECTED); HIV-1 RNA PCR QUANT 3 NOT DETECTED (NOT DETECTED)
== END ==
LOC: M SFHCCLAY 10:51
PROVIDERS: ATTEND Nurse Practitioner Family
DX: E03.9 Hypothyroidism, unspecified (principal); E11.39 Type 2 diabetes mellitus with other diabetic ophthalmic complication; I10 Essential (primary) hypertension; D50.8 Other iron deficiency anemias; B20 Human immunodeficiency virus [HIV] disease; E55.9 Vitamin D deficiency, unspecified

== ENCOUNTER 2025-04-13 11:52 | Day surgery (SDC) | payer OTHER ==
[~2025-04-13] VITALS: Ht 162.6 cm; Wt 112.5 kg
[~2025-04-13 11:52] MED LIST changes: +ATOR1TAB21 PO; +BANO25TA PO; +HYDR-3713 PO; -IBUP-1022 PO; +IBUP600T42 PO; +LOSA100T46 PO; +VITA1TAB82 PO; +[UNRECOGNIZED DRUG - CODE] PO
[2025-04-13] MEDS ORDERED: LIDOCAINE 2% 100 MG/5 ML SDV (FOR ANES.) As Ordered ONE (12:59)
[2025-04-13] MEDS ORDERED: GLYCOPYRROLATE INJ 0.2 MG/ML 2 ML VIAL As Ordered ONE (12:59)
[2025-04-13 14:20] VITALS: BP 128/82; O2SAT 94
== END 2025-04-13 14:24 | disposition home or self-care (01) ==
LOC: M OPP 11:52
PROVIDERS: ATTEND Surgery
DX: Z12.11 Encounter for screening for malignant neoplasm of colon (principal); D17.5 Benign lipomatous neoplasm of intra-abdominal organs; K55.20 Angiodysplasia of colon without hemorrhage; K57.30 Diverticulosis of large intestine without perforation or abscess without bleeding; K64.8 Other hemorrhoids; K31.89 Other diseases of stomach and duodenum; K31.7 Polyp of stomach and duodenum; K29.50 Unspecified chronic gastritis without bleeding; A59.9 Trichomoniasis, unspecified; Z96.3 Presence of artificial larynx; R10.13 Epigastric pain; Z88.1 Allergy status to other antibiotic agents; Z88.8 Allergy status to other drugs, medicaments and biological substances; Z79.82 Long term (current) use of aspirin; Z79.891 Long term (current) use of opiate analgesic; Z79.84 Long term (current) use of oral hypoglycemic drugs; Z79.85 Long-term (current) use of injectable non-insulin antidiabetic drugs; Z79.899 Other long term (current) drug therapy
CPT/HCPCS: 43251; 45380; 45382; 88305; J1596; J3010

== ENCOUNTER → 2025-05-25 | Outpatient (CLI) | payer OTHER ==
[~2025-05-25] MED LIST changes: -DOCU-160 PO; +STOO100C19 PO
== END ==
LOC: M CLY 09:55
PROVIDERS: ATTEND Nurse Practitioner Family
DX: M25.512 Pain in left shoulder (principal); M19.012 Primary osteoarthritis, left shoulder

== ENCOUNTER → 2025-05-25 | Outpatient (REF) | payer OTHER ==
[2025-05-25 18:30] LABS: BASO # 0.1 10^3/uL (0.0-0.2); BASO % 0.8 % (0.0-1.0); EOS # 0.4 10^3/uL (0.0-0.5); EOS % 3.4 % (0.0-3.0); LYMPH # 4.3 10^3/uL (1.5-5.0); LYMPH % 36.2 % (24.0-44.0); MONO # 0.9 10^3/uL (0.0-0.8); MONO % 7.2 % (2.0-8.0); NEUTROPHILS # 6.2 10^3/uL (1.5-8.5); NEUTROPHILS % 52.1 % (36.0-66.0); PLATELET COUNT, AUTOMATED 350 10^3/uL (150-450)
[2025-05-25 18:50] LABS: ESTIMATED AVERAGE GLUCOSE 154.0 MG/DL (60-110)
[2025-05-25 18:55] LABS: ALT/SGPT 23.0 U/L (7.0-40); AST/SGOT 22.0 U/L (<34); CALCIUM LEVEL 9.3 MG/DL (8.3-10.6); CARBON DIOXIDE LEVEL 34.0 MMOL/L (20-31); CHLORIDE LEVEL 97.0 MMOL/L (98-107); CHOLESTEROL LEVEL 141.0 MG/DL (<200); CHOLESTEROL RISK RATIO 3.0 (<5); CREATININE FOR GFR 0.89 MG/DL (0.55-1.30); GLOMERULAR FILTRATION RATE 73.7 (>45); IRON (FE) 30.0 UG/DL (50-170); LDL CHOLESTEROL 48.7 MG/DL (<100); NON-HDL-C 94.1 MG/DL; POTASSIUM SERUM 4.1 MMOL/L (3.5-5.1); SODIUM LEVEL 139.0 MMOL/L (136-145); TRIGLYCERIDES LEVEL 227.0 MG/DL (<150)
[2025-05-25 18:58] LABS: FREE T4 1.19 NG/DL (0.89-1.76)
[2025-05-25 18:59] LABS: FREE T4 1.24 NG/DL (0.89-1.76)
[2025-05-28 17:48] LABS: % CD4 46 % (30-61); %CD8 38 % (12-42); ABSOLUTE CD4 CELLS 1945 cells/uL (490-1740); ABSOLUTE CD8 CELLS 1625 cells/uL (180-1170); ABSOLUTE LYMPHOCYTES 4259 cells/uL (850-3900); CD4 CD8 RATIO 1.20 (0.86-5.00)
[2025-06-01 12:27] LABS: HIV-1 RNA PCR QUANT 2 NOT DETECTED copies/mL (NOT DETECTED); HIV-1 RNA PCR QUANT 3 NOT DETECTED (NOT DETECTED)
== END ==
LOC: M SFHCCLAY 09:47
PROVIDERS: ATTEND Nurse Practitioner Family
DX: E11.39 Type 2 diabetes mellitus with other diabetic ophthalmic complication (principal); E03.9 Hypothyroidism, unspecified; I10 Essential (primary) hypertension; D50.8 Other iron deficiency anemias; B20 Human immunodeficiency virus [HIV] disease